=== PATIENT | male | born 1985 | race Caucasian/White ===

== ENCOUNTER 2016-11-15 14:36 | Emergency (ER) | payer SELFPAY ==
[~2016-11-15] VITALS: Ht 175.3 cm; Wt 58.2 kg
[2016-11-15 14:41] VITALS: TEMP 36.7; Ht 175.3 cm; Wt 58.2 kg
--- NOTE | 2016-11-15 16:00 | EMERGENCY ROOM VISIT NOTE ---
History First contact with patient: 15:39 Chief Complaint: RECTAL BLEEDING Stated Complaint: RECTAL PAIN BLEEDING FATIGUE DIZZY Nursing Triage Summary: Pt states for 7 months he's had rectal bleeding, very red, sometimes its just a little blood on toilet paper sometimes it's like "I'm peeing blood out my bootie", "lumps on ass". Now feeling weak and dizzy at times. History of Present Illness The patient is a 31 year old male who presents to the Emergency Room with complaints of rectal bleeding for the past 7 months. The patient reports that he has intermittently had blood in his stools for the past 7 months. He reports that at times, there is a large amount of blood in his stools and at other times there is just a small amount on the toilet paper when he wipes. He denies any constipation or difficulty with bowel movements. He does report that intermittently over the past several months, he has had episodes of dizziness and is concerned about his blood counts. He does report feeling more fatigued than usual lately. The patient feels that he may have hemorrhoids, but is unsure. He does report he occasionally has rectal pain with bowel movements. He has been using witch emanuel pads without relief. He denies abdominal pain, nausea or vomiting. Review of Systems A complete 10-point Review of Systems was discussed with the patient, with pertinent positives and negatives listed in the History of Present Illness. All remaining Review of Systems questions can be considered negative unless otherwise specified. Social History Smoking Status: Current Every Day Smoker Housing Status: lives with family Occupation Status: employed Current/Historical Medications Scheduled Hydrocortisone 2.5% (Rectal) (Anusol-Hc 2.5%), 1 APPLN TOP BID Allergies Coded Allergies: No Known Allergies (Unverified , 11/15/16) Physical Exam Vital Signs Date Time Temp Pulse Resp B/P Pulse Ox O2 Delivery O2 Flow Rate FiO2 11/15/16 16:44 64 16 114/76 98 11/15/16 14:41 36.7 68 18 146/85 100 Room Air Physical Exam VITALS: Vitals are noted on the nurse's note and reviewed by myself. Vital signs stable. GENERAL: This is a 31-year-old male, in no acute distress, nondiaphoretic, well- developed well-nourished. HEART: Regular rate and rhythm without murmurs gallops or rubs. LUNGS: Clear to auscultation bilaterally without wheezes, rales or rhonchi. No retractions or accessory muscle use. ABDOMEN: Positive bowel sounds x 4. Soft, nontender to palpation. RECTAL: Normal tone. There are 2 large external hemorrhoids, measuring 0.75 cm and 1 cm diameter. There is a minimal amount of bleeding from the smaller hemorrhoid. The hemorrhoids are not acutely thrombosed. The patient deferred digital exam. NEURO: Patient was alert and oriented to person place and time. Medical Decision & Procedures Laboratory Results 11/15/16 16:01 Red Blood Count 4.73, Mean Corpuscular Volume 88.6, Mean Corpuscular Hemoglobin 31.9, Mean Corpuscular Hemoglobin Concent 36.0, Mean Platelet Volume 10.3, Neutrophils (%) (Auto) 45.0, Lymphocytes (%) (Auto) 40.1, Monocytes (%) (Auto) 13.1, Eosinophils (%) (Auto) 1.0, Basophils (%) (Auto) 0.8, Neutrophils # (Auto ) 2.79, Lymphocytes # (Auto) 2.48, Monocytes # (Auto) 0.81, Eosinophils # (Auto ) 0.06, Basophils # (Auto) 0.05 Test 11/15/16 16:01 White Blood Count 6.19 K/uL (4.8-10.8) Red Blood Count 4.73 M/uL (4.7-6.1) Hemoglobin 15.1 g/dL (14.0-18.0) Hematocrit 41.9 % (42-52) Mean Corpuscular Volume 88.6 fL (80-100) Mean Corpuscular Hemoglobin 31.9 pg (25-34) Mean Corpuscular Hemoglobin Concent 36.0 g/dl (32-36) Platelet Count 228 K/uL (130-400) Mean Platelet Volume 10.3 fL (7.4-10.4) Neutrophils (%) (Auto) 45.0 % Lymphocytes (%) (Auto) 40.1 % Monocytes (%) (Auto) 13.1 % Eosinophils (%) (Auto) 1.0 % Basophils (%) (Auto) 0.8 % Neutrophils # (Auto) 2.79 K/uL (1.4-6.5) Lymphocytes # (Auto) 2.48 K/uL (1.2-3.4) Monocytes # (Auto) 0.81 K/uL (0.11-0.59) Eosinophils # (Auto) 0.06 K/uL (0-0.5) Basophils # (Auto) 0.05 K/uL (0-0.2) RDW Standard Deviation 41.9 fL (36.4-46.3) RDW Coefficient of Variation 12.8 % (11.5-14.5) Immature Granulocyte % (Auto) 0.0 % Immature Granulocyte # (Auto) 0.00 K/uL (0.00-0.02) Medical Decision Differential diagnosis includes external hemorrhoids, internal hemorrhoid, thrombosed hemorrhoid, among others. The patient was evaluated as above. Examination reveals 2 large external hemorrhoids which are likely the cause of the patient's symptoms. He was very concerned about his blood loss and so a CBC was performed. The patient was not anemic. The hemorrhoids are not thrombosed and do not need to be incised at this time. He was given a prescription for Anusol cream and encouraged to use a stool softener [id number]. The patient was informed that he will need to follow-up with a primary care provider or general surgeon for definitive treatment of his hemorrhoids. The case manager specialist spoke with the patient regarding [facility], as he does not have medical insurance. He will return for any new/concerning symptoms. He verbalizes understanding of my assessment and treatment plan and was discharged home in good condition. Impression Primary Impression: External hemorrhoids Departure Information Dispostion Home / Self-Care Condition GOOD Prescriptions Hydrocortisone 2.5% (Rectal) (ANUSOL-HC 2.5%) 2.5 % Cre 1 APPLN TOP BID for 7 Days, #30 GM 1 Refill Prov: Marilyn Hastings ., [place] 11/15/16 Referrals Steven Back M.D. Patient Instructions A Signature Page Additional Instructions Apply the cream to the hemorrhoids twice daily until the hemorrhoids resolved. You should begin an [id number] stool softener, like Colace. You should follow-up with a general surgeon for definitive care of your external hemorrhoids. Make an appointment with [facility] for primary care. Return to the emergency department for worsening pain, worsening bleeding or any other new/concerning symptoms.
[2016-11-15 16:10] LABS: BASO % 0.8 %; BASO ABS # 0.05 K/uL (0-0.2); COMPLETE YES; HEMATOCRIT 41.9 % (42-52); LYMPH % 40.1 %; LYMPH ABS # 2.48 K/uL (1.2-3.4); MEAN CELL VOLUME 88.6 fL (80-100); MEAN CORPUSCULAR HEMOGLOBIN 31.9 pg (25-34); MEAN PLATELET VOLUME 10.3 fL (7.4-10.4); MONO % 13.1 %; PLATELET COUNT 228 K/uL (130-400); RED BLOOD COUNT 4.73 M/uL (4.7-6.1); WHITE BLOOD COUNT 6.19 K/uL (4.8-10.8)
[2016-11-15] MEDS ORDERED: HYDR2.5C37 TOP (16:24)
[2016-11-15 16:44] VITALS: BP 114/76; PULSE 64; O2SAT 98
== END 2016-11-15 16:45 | disposition home or self-care (01) ==
LOC: C.EDB 14:38 → C.EDC 16:45
DX: K64.4 Residual hemorrhoidal skin tags (principal); F17.200 Nicotine dependence, unspecified, uncomplicated

== ENCOUNTER 2017-01-29 11:08 | Emergency (ER) | payer SELFPAY ==
[~2017-01-29] VITALS: Ht 175.3 cm; Wt 60.0 kg
[~2017-01-29 11:08] MED LIST: HYDR2.5C37 TOP
[2017-01-29 11:11] VITALS: TEMP 36.9; Ht 175.3 cm; Wt 60.0 kg
[2017-01-29] MEDS ORDERED: ELMCR EXT (11:26)
--- NOTE | 2017-01-29 11:27 | EMERGENCY ROOM VISIT NOTE ---
ED Visit Note First contact with patient: 11:15 CHIEF COMPLAINT: Rash HISTORY OF PRESENT ILLNESS: This 31-year-old male patient presents to the emergency department ambulatory complaining of a rash all over his body which started yesterday. The patient reports that he spent the night at his brother' s house and slept on the couch. He reports that when he woke up, he had bumps all over his body which were itchy. He reports that he also stated 2 weeks ago and had a few bumps on his skin at that time, but they had resolved. He reports that his brother's children also appeared to have the same rash and his daughter has a rash as well. He denies any pain. He has been using a steroid cream on the rash with little relief. No change in food, soap, detergents, or other environmental factors. No new medications. No weakness or numbness. The patient does also report that his brother has dogs. REVIEW OF SYSTEMS: A 6 system review of systems was completed with positives and pertinent negatives listed in the HPI. ALLERGIES: No known drug allergies MEDICATIONS: No chronic medications PMH: No significant past medical history. SOCIAL HISTORY: The patient lives locally with his family. He is a smoker. He denies alcohol use. PHYSICAL EXAM: Vital Signs: Reviewed Nurse's notes, vital signs stable. GENERAL : This is a 31-year-old male, in no acute distress, well-developed, well- nourished. SKIN: Here multiple erythematous papules with evidence of surrounding excoriation over the hands, bilateral lower legs, buttocks and upper back. Capillary refill less than 2 seconds. EMERGENCY DEPARTMENT COURSE: The patient was evaluated as above. I am suspicious that he may have scabies. The patient will be treated with permethrin and was instructed to follow-up with his primary care provider for further evaluation if the rash persists. Conservative measures were discussed. The patient was instructed to wash all bedding and clothing in hot water. He verbalized understanding of my assessment and treatment plan and was discharged home in good condition. DIAGNOSIS: Scabies Current/Historical Medications Scheduled Permethrin 5% (Elimite 5%), 0 EXT UD Allergies Coded Allergies: No Known Allergies (Unverified , 01/29/17) Vital Signs Date Time Temp Pulse Resp B/P Pulse Ox O2 Delivery O2 Flow Rate FiO2 01/29/17 11:36 72 16 113/67 99 01/29/17 11:11 36.9 72 16 113/67 99 Room Air Departure Information Impression Primary Impression: Scabies Dispostion Home / Self-Care Condition GOOD Prescriptions Permethrin 5% (Elimite 5%) 180 Appln/60 Gm Cr 0 EXT UD, #1 TUBE 1 Refill APPLY HEAD TO FOOT - LEAVE ON 8-14 HR - WASH OFF Prov: Marilyn Hastings ., [place] 01/29/17 Referrals No Doctor, Assigned (PCP) Patient Instructions ED Scabies, [facility] Additional Instructions Use the permethrin as prescribed. Wash all of your clothing and bedding in the hottest water possible. Follow up with your primary care provider if you have a persistent rash despite this treatment. Return for any new/concerning symptoms.
[2017-01-29 11:36] VITALS: BP 113/67; PULSE 72; O2SAT 99
== END 2017-01-29 11:36 | disposition home or self-care (01) ==
LOC: C.EDB 11:10 → C.EDD 11:36
DX: B86 Scabies (principal); F17.200 Nicotine dependence, unspecified, uncomplicated